=== PATIENT | male | born 1995 | race Caucasian/White ===

== ENCOUNTER 2024-01-31 22:25 | Emergency (ER) | payer OTHER, SELFPAY ==
[2024-01-31 22:38] VITALS: BP 172/97; PULSE 107; TEMP 36.8; O2SAT 98; BMI 37.2
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
[2024-01-31] MEDS: ADACEL DIPH,PERTUSS(ACELL),TET VAC/PF 0.5 ML ADULT SYRINGE IM (22:56)
[2024-01-31 23:30] VITALS: BP 155/103; PULSE 93; O2SAT 96
[2024-02-01] MEDS: HYDROCODONE/ACET 5-325 MG TABLET 2 TAB PO (00:36)
[2024-02-01] MEDS: BACITRACIN OINTMENT 28.4 GM TUBE 1 APPLIC TOPICAL (00:39)
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
== END 2024-02-01 00:42 | disposition home or self-care (01) ==
PROVIDERS: Emergency Provider Internal Medicine
DX: T65.891A Toxic effect of other specified substances, accidental (unintentional), initial encounter (principal); T23.602A Corrosion of second degree of left hand, unspecified site, initial encounter; T23.601A Corrosion of second degree of right hand, unspecified site, initial encounter; T22.612A Corrosion of second degree of left forearm, initial encounter; T20.60XA Corrosion of second degree of head, face, and neck, unspecified site, initial encounter; T24.621A Corrosion of second degree of right knee, initial encounter; T24.611A Corrosion of second degree of right thigh, initial encounter; T21.61XA Corrosion of second degree of chest wall, initial encounter; Y93.89 Activity, other specified; Z23 Encounter for immunization; Y92.63 Factory as the place of occurrence of the external cause; T31.11 Burns involving 10-19% of body surface with 10-19% third degree burns
CPT/HCPCS: 90471; 90715; 99283